=== PATIENT | female | born 1960 | race Caucasian/White ===

== ENCOUNTER 2024-02-05 07:43 | Day surgery (SDC) | payer MEDICARE ==
[~2024-02-05] VITALS: Ht 154.9 cm; Wt 93.4 kg
[2024-02-05] MEDS: LIDOCAINE 1% SDV 5ML VIAL As Ordered ONE (07:04)
[~2024-02-05 07:43] MED LIST: ADME100I2 SC; BASA100I SC; CARV6.25 PO; FARX1TAB5 PO; GABA-1171 PO; LOSA50TA28 PO; PHENYLEPHRINE 10% OPHTH SOL 5ML OS PRN; ROPI1TAB73 PO; ROSU5TAB40 PO
[2024-02-05] MEDS: PHENYLEPHRINE 2.5% OPHTH SOL 2ML OS SCH (08:09)
[2024-02-05] MEDS: OFLOXACIN 0.3 % (OCUFLOX) OPTH SOL 5ML OS ONE (08:09)
[2024-02-05] MEDS: ATROPINE SULFATE 1% OPHTH SOLN 2ML BTL OS SCH (08:09)
[2024-02-05] MEDS: TROPICAMIDE 1% OPHTH SOLN 15ML OS SCH (08:10)
[2024-02-05] MEDS: LIDOCAINE 3.5 % 1ML OPHTH TOPICAL GEL OU ONE (08:10)
[2024-02-05] MEDS ORDERED: MIDAZOLAM INJ 2MG/2ML VIAL As Ordered ONE (08:47)
[2024-02-05] MEDS ORDERED: fentaNYL 100 MCG/2 ML INJECTION As Ordered ONE (08:48)
[2024-02-05] MEDS: BSS IRRIG/VANCO(10MG)/TOBRA(5MG)/EPINEPH(1:1000-0.5CC)500ML BAG-ORONLY As Ordered ONE (09:00)
[2024-02-05] MEDS: CEFUROXIME 1MG/0.1ML INTRACAMERAL INJ As Ordered ONE (09:10)
[2024-02-05 09:16] VITALS: BP 157/66; TEMP 97.8; O2SAT 98
== END 2024-02-05 09:30 | disposition home or self-care (01) ==
LOC: M SDC 07:43
PROVIDERS: ATTEND Ophthalmology
DX: E11.36 Type 2 diabetes mellitus with diabetic cataract (principal); H25.12 Age-related nuclear cataract, left eye; I10 Essential (primary) hypertension; E78.00 Pure hypercholesterolemia, unspecified; G47.30 Sleep apnea, unspecified; Z79.4 Long term (current) use of insulin; Z79.899 Other long term (current) drug therapy; Z90.710 Acquired absence of both cervix and uterus
CPT/HCPCS: 66984; 92015; J0697; J2250; J3010; V2788

== ENCOUNTER 2024-02-12 06:53 | Day surgery (SDC) | payer MEDICARE ==
[~2024-02-12] VITALS: Ht 157.5 cm; Wt 93.6 kg
[~2024-02-12 06:53] MED LIST changes: +LIDOCAINE 3.5 % 1ML OPHTH TOPICAL GEL OU ONE; +PHENYLEPHRINE 10% OPHTH SOL 5ML OD PRN; -PHENYLEPHRINE 10% OPHTH SOL 5ML OS PRN
[2024-02-12] MEDS ORDERED: fentaNYL 100 MCG/2 ML INJECTION As Ordered ONE (07:10)
[2024-02-12] MEDS ORDERED: MIDAZOLAM INJ 2MG/2ML VIAL As Ordered ONE (07:10)
[2024-02-12] MEDS: OFLOXACIN 0.3 % (OCUFLOX) OPTH SOL 5ML OD ONE (07:18)
[2024-02-12] MEDS: ATROPINE SULFATE 1% OPHTH SOLN 2ML BTL OD SCH (07:18)
[2024-02-12] MEDS: TROPICAMIDE 1% OPHTH SOLN 15ML OD SCH (07:18)
[2024-02-12] MEDS: PHENYLEPHRINE 2.5% OPHTH SOL 2ML OD SCH (07:18)
[2024-02-12] MEDS: LIDOCAINE 1% SDV 5ML VIAL As Ordered ONE (08:37)
[2024-02-12] MEDS: BSS IRRIG/VANCO(10MG)/TOBRA(5MG)/EPINEPH(1:1000-0.5CC)500ML BAG-ORONLY As Ordered ONE (08:37)
[2024-02-12] MEDS: CEFUROXIME 1MG/0.1ML INTRACAMERAL INJ As Ordered ONE (08:37)
[2024-02-12 08:52] VITALS: BP 148/65; TEMP 97.8; O2SAT 96
== END 2024-02-12 09:06 | disposition home or self-care (01) ==
LOC: M SDC 06:53
PROVIDERS: ATTEND Ophthalmology
DX: E11.36 Type 2 diabetes mellitus with diabetic cataract (principal); H25.11 Age-related nuclear cataract, right eye; I10 Essential (primary) hypertension; E78.00 Pure hypercholesterolemia, unspecified; G47.30 Sleep apnea, unspecified; Z79.4 Long term (current) use of insulin; Z79.899 Other long term (current) drug therapy; Z90.710 Acquired absence of both cervix and uterus
CPT/HCPCS: 66984; 92015; J0697; J2250; J3010; V2788